=== PATIENT | male | born 1955 | race Caucasian/White ===

== ENCOUNTER 2019-04-14 06:46 | Inpatient (IN) ==
[2019-04-14 07:02] LABS: BILIRUBIN URINE NEGATIVE (NEGATIVE); BLOOD URINE TRACE (NEGATIVE); COLOR YELLOW; GLUCOSE URINE NEGATIVE (NEGATIVE); KETONE URINE NEGATIVE (NEGATIVE); LEUKOCYTES URINE NEGATIVE (NEGATIVE); NITRITE URINE NEGATIVE (NEGATIVE); PH URINE 5.5; PROTEIN URINE 100 mg/dL (NEGATIVE); SP GRAVITY URINE 1.026; TURBIDITY URINE HAZY (CLEAR); URINE SOURCE CLEAN CATCH; UROBILINOGEN URINE NORMAL (NORMAL)
[2019-04-14 07:11] LABS: UR EPITHELIAL CELLS <10 /HPF (<10); URINE BACTERIA NEGATIVE /HPF; URINE RBC <10 /HPF (<10); URINE WBC <10 /HPF (<10)
[2019-04-14 07:12] LABS: URINE CASTS GRANULAR PRESENT; URINE CRYSTALS NONE SEEN; URINE SMALL ROUND CELLS NONE SEEN; URINE YEAST NONE SEEN
[2019-04-14] MEDS ORDERED: ZOFRAN ODT PO ONE (07:52)
[2019-04-14] MEDS ORDERED: TORADOL IM ONE (07:52)
--- NOTE | 2019-04-14 07:55 | Diag Imaging Result Doc PS360 ---
EXAM: CT RENAL STONE SEARCH 04/14/2019 HISTORY: left flank pain, h/o renal stones TECHNIQUE: This exam was performed using automated exposure control, adjustment of mA or kV according to patient size, and/or use of iterative reconstruction technique. COMMENT: There are platelike opacities in the medial lower lobes bilaterally which have not changed since 07/23/2018 and are likely fibrotic. There is no evidence of acute disease in the visualized portion of the chest. There are multiple calyceal stones on the left as well as at least two stones in the renal pelvis. The largest of these measures over 11 mm in diameter. There is no significant hydronephrosis and the proximal ureter is not distended. There is no evidence of ureterolithiasis. The urinary bladder is not distended. There are number of cysts present in the right kidney one of which is exophytic posteriorly measuring 2.6 cm in diameter. There is no evidence of cholelithiasis. There are number of calcifications present in the liver some of which appear to be in the liver capsule. There are also apparent capsular calcifications in the spleen. The aorta is partially calcified and there is no evidence of aneurysm. There are multiple air-fluid levels in the small bowel. There has been previous colon resection and there is an ileostomy in the right lower quadrant. There is herniation of multiple loops of small bowel some of which contain fecalized contents. The stomach is not distended. There is no evidence of free fluid. There is ankylosis of the sacroiliac joints bilaterally and there is degenerative disc and facet disease in the lumbar spine. Compared to 07/23/2018 the dilatation of the small bowel and air-fluid levels were not present previously. IMPRESSION: Left nephrolithiasis without evidence of obstructive uropathy. Partial small bowel obstruction. This is probably due to stomal hernia. Electronically signed by Arun Burleson 04/14/2019 7:52 AM
[2019-04-14] MEDS ORDERED: NS 1,000 ML IV ONE (08:10)
[2019-04-14 08:13] LABS: AGAP 10; ALB/GLOB RATIO 1.1; ALBUMIN 4.1 g/dL (3.5-5.0); ALKALINE PHOSPHATASE 81 U/L (32-122); BUN 12 mg/dL (8-22); CALCIUM 9.3 mg/dL (8.8-10.2); CHLORIDE 103 mmol/L (98-107); COSMO 270; ESTIMATED GFR > 60; GLUCOSE 128 mg/dL (70-104); GOT 21 U/L (10-34); GPT 24 U/L (10-44); POTASSIUM 4.2 mmol/L (3.5-5.1); SODIUM 134 mmol/L (136-145); TCO2 21 mmol/L (25-35); TOTAL BILIRUBIN 0.99 mg/dL (0.20-1.00); TOTAL PROTEIN 7.7 g/dL (6.3-8.3)
[2019-04-14] MEDS ORDERED: VALIUM IV ONE (08:30)
[2019-04-14 08:32] LABS: BASO# 0.03 X1000 (0.0-0.2); BASO% 0.2 % (0.0-0.8); EOS% 0.8 % (0.0-10.0); HEMATOCRIT 50.8 % (42.0-52.0); HEMOGLOBIN 17.8 g/dL (14.0-18.0); IMM GRAN# 0.03 X1000 (0.0-0.04); IMM GRAN% 0.2 % (0.0-0.5); LYMPH# 1.69 X1000 (1.2-3.4); LYMPH% 13.4 % (20.5-51.1); MCH 28.7 PG (27-31); MCV 81.9 FL (81-99); MONO# 0.58 X1000 (0.11-0.59); MONO% 4.6 % (1.7-9.3); MPV 9.2 FL (7.4-10.4); NEUT# 10.15 X1000 (1.4-6.5); NEUT% 80.8 % (42.2-75.2); PLT 281 X1000 (130-400); RDW 13.9 % (11.5-14.5); WBC 12.58 X1000 (4.8-10.8)
--- NOTE | 2019-04-14 08:37 | PROVIDER DOCUMENTATION ---
This chart was entered by Christina Herman Scribe, acting as scribe for Nathan Espinoza DO. HPI-General Adult - General Chief Complaint: Flank Pain Stated Complaint: KIDNEY STONE Time Seen by Provider: 04/14/19 06:50 Source: patient Allergies/Adverse Reactions: Patient Allergies Allergy/AdvReac Type Severity Reaction Status Date / Time No Known Allergies Allergy Verified 12/09/18 08:16 Home Medications: Home Medication List Medication Instructions Recorded Confirmed Last Taken Type Oxycodone HCl/Acetaminophen 1 ea PO Q6-8H PRN PRN #20 tab 12/02/18 12/11/18 12/10/18 19:00 Rx [Percocet 5-325 mg Tablet] 1 Hydrocodone/Acetaminophen [Council 1 ea PO Q4H PRN PRN #10 tab 12/11/18 Unknown Rx 7.5-325 Tablet] Tamsulosin [Flomax] 0.4 mg PO DAILY #10 cap 12/11/18 Unknown Rx - History of Present Illness -Gen Adult Nature of Presenting Problems: 64 yowm presents to the ed with c/o left flank pain radiating to LLQ. pt sts onset of pain was 4 days and sts worsened last night but has improved this am to a 02/09 pain. pt sts has hx of kidney stones and this feels similar to past stones. pt sts was seen 6 months prior with same complaint. pt on exam is nontoxic in appearance Location of Pain/Injury: reports: back (left flankl) Pain Radiation: reports: LLQ Quality of Pain: reports: other (pt describes pain as "jabbing") Severity: reports: moderate (02/09) Onset/Duration: reports: 4 days ago Timing: reports: still present, improving, intermittent Context/Activities at Onset: reports: light activity Modifying Factors: improves with: nothing Associated Symptoms: reports: back/neck pain, nausea. denies: chest pain, cough, diarrhea, fever/chills, malaise, shortness of breath, vomiting Similar Symptoms Previously?: Yes (hx of stones) Recently seen or treated by another doctor?: No Review of Systems - Adult - REVIEW OF SYSTEMS - ADULT Constitutional: denies: chills, fever Eyes: reports: no symptoms reported Ears, Nose, Mouth & Throat: reports: no symptoms reported Cardiovascular: denies: chest pain, palpitations Respiratory: denies: shortness of breath, wheezing Gastrointestinal: reports: see HPI, abdominal pain (LLQ), nausea. denies: diarrhea, vomiting Genitourinary: reports: see HPI, flank pain Musculoskeletal: reports: see HPI, back pain (left flank). denies: neck pain Integumentary: reports: no symptoms reported Neurological: reports: no symptoms reported. denies: dizziness/vertigo, headache/migraines Psychiatric: reports: no symptoms reported Endocrine: reports: no symptoms reported Hematologic/Lymphatic: reports: no symptoms reported Allergic/Immunologic: reports: no symptoms reported All Other Systems: Reviewed and Negative Past History - Adult - PAST MEDICAL HISTORY-ADULT Review of Records: reports: Old Records Reviewed, Nursing Assessment Review, Medications Reviewed, Social history reviewed & non-contributory. Major Childhood Illnesses: reports: denies history Cardiovascular: reports: denies history Respiratory: reports: denies history Gastrointestinal: reports: Crohn's Genitourinary: reports: kidney stones Musculoskeletal: reports: denies history Neurological: reports: denies history Endocrine/Immune: reports: denies history Other Conditions: reports: denies history - PRIOR SURGERIES/PROCEDURES Surgical/Procedure History: reports: other (colon removed; colostomy) - IMMUNIZATION STATUS Childhood Immunizations: See Nurse Assessment Flu Vaccine: See Nurse Assessment - FAMILY HISTORY Family History: reviewed, not pertinent - SOCIAL HISTORY Smoking: quit greater than 1 year (2002) Substance Use: denies Alcohol Use Frequency: never Living Situation: family Physical Exam-General - PHYSICAL EXAM-ADULT Initial Vital Signs Reviewed: Yes - CONSTITUTIONAL General Appearance: appears well, alert, no apparent distress, obese - EYES Eyes: PERRL/EOMI, pink conjunctivae - HEAD, EARS, NOSE, MOUTH & THROAT HENMT: moist mucous membranes, normal ENT inspection - NECK Neck: non-tender, full range of motion, supple, normal inspection - RESPIRATORY Respiratory: chest non-tender, lungs clear, normal breath sounds - CARDIOVASCULAR Cardiovascular: normal peripheral pulses, regular rate, rhythm - GASTROINTESTINAL (ABDOMEN) Abdominal Exam: normal bowel sounds, soft, other (ostomy to RLQ). negative: distended, guarding - LYMPHATIC Lymphatic: no adenopathy - MUSCULOSKELETAL Back Exam: normal inspection, other (left flank tenderness to palpation) Extremity: normal range of motion, non-tender, no pedal edema, no calf tenderness, normal capillary refill - SKIN Integumentary: normal color, normal turgor, warm/dry - NEUROLOGIC Neurologic: grossly normal - PSYCHIATRIC Psych/Mental Status: normal mood/affect, normal thought content, normal thought process, oriented x 3 Progress - PLAN OF CARE/RESULTS Progress/Plan/Lab Results: Vital Signs - 8 hr 04/14/19 06:49 Temperature 98.1 F Pulse Rate 71 Respiratory Rate 16 Blood Pressure 164/97 O2 Sat by Pulse Oximetry 94 L Laboratory Results - last 24 hr 04/14/19 06:52 Urine Source CLEAN CATCH Orders Category Date Time Status URINALYSIS W/POSS RFLX CULT [URINALYSIS] Stat Lab 04/14/19 06:52 Ordered Result Diagrams: 04/14/19 07:44 04/14/19 07:44 - REASSESSMENT Reassessment #1 Time Reassessed: 08:03 (dr espinoza at bedside speaking with pt and family about poc ) Status: improving Reassessment #2 Time Reassessed: 08:34 (pt is resting in bed) Status: unchanged - CT/MRI 1 CT Study: Kidneys Impression: See EMR Report (EXAM: CT RENAL STONE SEARCH 04/14/2019 HISTORY: left flank pain, h/o renal stones TECHNIQUE: This exam was performed using automated exposure control, adjustment of mA or kV according to patient size, an d/or use of iterative reconstruction technique. COMMENT: There are platelike opacities in the medial lower lobes bilaterally which have not changed since 07/23/2018 and are likely fibrotic. There is no evidence of acute disease in the visualized portion of the chest. There are multiple calyceal stones on the left as well as at least two stones in the renal pelvis. The largest of these measures over 11 mm in diameter. There is no significant hydronephrosis and the proximal ureter is not distended. There is no evidence of ureterolithiasis. The urinary bladder is not distended. There are number of cysts present in the right kidney one of which is exophytic posteriorly measuring 2.6 cm in diameter. There is no evidence of cholelithiasis. There are number of calcifications present in the liver some of which appear to be in the liver capsule. There are also apparent capsular calcifications in the spleen. The aorta is partially calcified and there is no evidence of aneurysm. There are multiple air-fluid levels in the small bowel. There has been previous colon resection and there is an ileostomy in the right lower quadrant. There is herniation of multiple loops of small bowel some of which contain fecalized contents. The stomach is not distended. There is no evidence of free fluid. There is ankylosis of the sacroiliac joints bilaterally and there is degenerative disc and facet disease in the lumbar spine. Compared to 07/23/2018 the dilatation of the small bowel and air-fluid levels were not present previously. IMPRESSION: Left nephrolithiasis without evidence of obstructive uropathy. Partial small bowel obstruction. This is probably due to stomal hernia. Electronically signed by Arun Burleson 04/14/2019 7:52 AM 04/14/19 0752 Interpreting Physician: Arun Burleson MD Dictated Date/Time: 04/14/19 0744 cc: Nathan Espinoza DO; None,PCP) - CONSULTS/PCP/HOSPITALIST Notification #1 *Consult/PCP/Hospitalist*: dr sánchez villarreal Time Discussed: 08:23 Consult Disposition: other (phone consult) #2 Consult: hospitalist dr valdes Time Discussed: 08:33 Consult Disposition: Admit Departure - Departure Date of Disposition Decision: 04/14/19 Time of Disposition Decision: 08:33 DIAGNOSIS: Nephrolithiasis, Partial small bowel obstruction Disposition: ADMITTED INPATIENT 09 Certified Medical Emergency: Emergent Condition: Stable Additional Freetext Instructions: ED Follow Up Instructions: You have been treated by a care provider in the Emergency Department. These instructions are being provided to you so you can have an understanding of how to care for yourself upon discharge. Upon discharge from the Emergency Department, you are responsible for making arrangements for follow-up care by a physician of your choice. Take all prescribed medications as directed. Return to the Emergency Department immediately for any new or worsening symptoms. You may call the Physician Referral phone number at [phone] to obtain a list of Physicians who are taking new patients. Referrals and Follow-Ups: None,PCP [Primary Care Provider] - - Critical Care Note This patient required my direct & personal management of CC.: Yes Total Time (mins): 36 Critical Care Statement: This patient required my direct personal management to treat or rule out processes, the absence of which, could potentiallly result in sudden, clinically significant life or limb threatening deterioration. Attestation - Physician/ SOUMYA Attestation Patient care was provided by Advanced Practice Provider:: No The physician spent face to face time with patient:: Yes Advanced Practice Provider documentation review:: Supervising physician onsite and consulted in the evaluation and care of this patient. The physician did have a face to face encounter with the patient. This chart was documented by the indicated scribe, (Christina Herman Scribe) and accurately reflects the services I performed and decisions made by , Nathan Espinoza DO, as attested by the provider's signature.
[2019-04-14] MEDS ORDERED: ZOFRAN IV PRN (08:45)
--- NOTE | 2019-04-14 09:36 | Diag Imaging Result Doc PS360 ---
EXAM: CHEST-1 VIEW 04/14/2019 HISTORY: POST NG TUBE PLACEMENT TECHNIQUE: AP portable chest and abdomen for NG tube placement at 0926 COMMENT: There is an NG tube with its tip in the fundus the stomach. IMPRESSION: NG tube in the stomach. Electronically signed by Arun Burleson 04/14/2019 9:34 AM
--- NOTE | 2019-04-14 10:37 | Diag Imaging Result Doc PS360 ---
CHEST-2 VIEWS - 04/14/2019 INDICATION: sob; leukocytosis COMPARISON: None FINDINGS: There is a nasogastric tube in the stomach. Lung volumes are low. No infiltrates or edema. Heart size and pulmonary vascularity is normal. There are ankylosing syndesmophytes throughout the thoracic spine and most of the lumbar spine. There are numerous disc fusions in the lower thoracic spine. No fracture or subluxation. IMPRESSION: No acute disease or complication. Electronically signed by Joseph Yancey 04/14/2019 10:35 AM
--- NOTE | 2019-04-14 10:46 | HISTORY AND PHYSICAL ---
PRIMARY CARE PROVIDER: No-one. UROLOGIST: Dr. Ingram. GENERAL SURGEON BACK IN 2006: Dr. Merrill. CHIEF COMPLAINT: Abdominal pain. HISTORY OF PRESENT ILLNESS: Mr. John Adams is a 64-year-old male with a medical history of Crohn's, who developed gut back in 2006 requiring colon resection with colostomy. His colostomy bag prescription is from Dr. Merrill, who performed the surgery itself. Is now presenting with complaints of left lower quadrant abdominal pain and the stoma site just feeling different. Imaging reveals he has a partial small-bowel obstruction with multiple loops of small bowel herniation. Dr. Novak was consulted by the ER physician. He will get an NG tube. On further questioning the patient, he actually has been having some left lower quadrant that radiates to his back since the last 3 days. It just worsened last night and he had associated nausea with reflux. No vomiting. The stoma feeling tight, just difficulties with sleeping. The pain eased up only when he is lying on his left side and he noticed that he, over the last 24 hours, had a decrease in the amount of stool. He says usually it has always been an usually black. Visualization of the stool itself right now is thin and it is brown. He has larger volume with eating. He felt feverish this morning, so we will admit to the surgical floor. Consult Dr. Novak. Keep him n.p.o. Give him IV fluids. PAST MEDICAL HISTORY: 1. Crohn's with history of gut and colon resection. 2. Arthritis. 3. Kidney stones. 4. Large hiatal hernia. 5. Seasonal allergies. SURGICAL HISTORY: 1. 2006 had colon resection with colostomy. 2. Double-J stents placed and removed. 3. Lithotripsy. 4. Bilateral cataracts. 5. No history of left heart catheterization. 6. Last EGD and colonoscopy was in [address] To. SOCIAL HISTORY: Quit smoking in 2002 but prior to that was a 1 pack per day smoker for 25 years. Denies alcohol or illicit drug use. He is after 27 years of marriage. She 10 years ago. Had 3 stepchildren with her. One of his stepdaughters lives with them. 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 He is a [employer] . 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 FAMILY HISTORY: Sister has laryngeal cancer. Three brothers and 1 nephew have Crohn's. Mother at 34 from stomach cancer. Father at 89 from congestive heart failure and strokes, also had dementia. He had 1 aunt had breast cancer and diabetes. ALLERGIES: No known drug allergies. HOME MEDICATIONS: He actually claims that he does not take medication at home and reviewing external medication history as far as prescriptions, he has not had any recent refills or medication fills. REVIEW OF SYSTEMS: Fourteen point review of systems are complete and all are negative except for those mentioned in the above HPI. PHYSICAL EXAMINATION: VITAL SIGNS: Temperature 98.1 degrees, heart rate 71, respiratory rate 16, blood pressure 164/97, O2 saturation 94% on room air. 5 feet 9 inches tall, 220 pounds. BMI 32.5. GENERAL: Mr. John Adams is a 64-year-old male. He is in no acute distress. He is able to answer questions appropriately. HEENT: Atraumatic, normocephalic. Pupils equal, round, reactive to light. Extraocular movements intact. Mucous membranes are dry. NECK: Trachea midline. CARDIOVASCULAR: S1, S2. Regular rate and rhythm. No rubs, gallops, murmurs. Trace lower extremity edema. +2 dorsalis and radial pulses. Negative for JVD or carotid bruits. PULMONARY: Clear to auscultation. Bilateral breath sounds. No accessory muscle use or work of breathing noted. Tolerating room air next. GASTROINTESTINAL: Abdomen is round, obese, bulging hernia in the upper mid abdomen. Soft. Positive bowel sounds. Tender in the left lower quadrant. Colostomy with thin brown stool in the right lower quadrant. EXTREMITIES: Moves all extremities equally with mildly decreased range of motion. NEUROLOGIC: Awake, alert and oriented. Follows commands. Sensory is intact. SKIN: Warm, dry, intact. LABORATORY DATA: White blood cells 12,000, hemoglobin 17, hematocrit 50, platelet count 281,000. Sodium 134, potassium 4.2, BUN 12, creatinine 1.0, glucose 128, calcium 9.3. Bilirubin 0.99. AST 21, ALT 24, albumin 4.1. Urinalysis 100 protein, trace blood. IMAGIN. Chest x-ray. NG tubes in the stomach. This is poor imaging of the chest. May have to get a chest x-ray to review for any risk of pneumonia. 2. Renal CT. Left nephrolithiasis without evidence of obstruction uropathy. There is a partial small bowel obstruction and stomal hernia. ASSESSMENT AND PLAN: 1. Partial small-bowel obstruction with stomal hernia, nausea. Currently on the NG tube to low intermittent suction. N.p.o., IV fluids for the n.p.o. status. Antiemetics as needed. Dr. Novak consulted but he does have a history with Dr. Merrill, as Dr. Merrill did his colon resection in 2006. 2. Abdominal pain. We will do IV Ofirmiv as needed q.6 hours. 3. History of Crohn's with gut and colon resection in 2006 with a colocolostomy. Currently there is a stomal herniation. 4. Left nephrolithiasis but nonobstructive. Currently getting IV fluids. Dr. Ingram has followed him for this in the past. 5. Large hiatal hernia but denies any gastroesophageal reflux disease with this. 6. Arthritis. Takes nothing at home for this. 7. Seasonal allergies. Occasionally takes something for his allergies. No complaints at this time. 8. Leukocytosis. We will repeat a chest x-ray to better visualize the chest but denies any pulmonary symptoms other than he does get occasional short of breath when he overeats due to the large hiatal hernia. We will draw lactate and blood cultures. The urinalysis is negative for any signs of UTI. May prophylactically go ahead and start him on some Zosyn for day or 2 or may do Levaquin and Flagyl. 9. Stoma. We will consult Wound Care for taking care of the stoma. 10. Deep venous thrombosis prophylaxis. SCDs. Dictated by CHINA Pollard for Eligio Llanes MD Addendum: Patient seen and examined by myself. Agree with CHINA note. It reflects my assessment and plan. Patient is being admitted to hospital for SBO. General surgery has been consulted. Will continue with NG tube and will monitor patient closely. cc: CHINA Pollard MD [facility]
[2019-04-14 11:10] LABS: HEMOGLOBIN A1C 5.5 % (4.8-6.0)
--- NOTE | 2019-04-14 11:52 | EKG Report ---
Test Performed on : 04/14/2019 11:36:19 AM Test Reason : qtc evaluation Blood Pressure : / mmHG Vent. Rate : 082 BPM Atrial Rate : 082 BPM P-R Int : 186 ms QRS Dur : 084 ms QT Int : 360 ms P-R-T Axes : 038 -44 002 degrees QTc Int : 420 ms Normal sinus rhythm. Left axis deviation Cannot rule out Anterior infarct (cited on or before 19-FEB-2015) Abnormal ECG When compared with ECG of 09-DEC-2018 08:21, No significant change was found Confirmed by Tiffany Hannah MD ([id number]) on 04/15/2019 6:24:47 AM
[2019-04-14 12:03] LABS: FREE T4 0.9 ng/dL (0.93-1.70); TSH 2.3 uIUmL (0.27-4.20)
[2019-04-14] MEDS: SODIUM CHLORIDE 0.9% INJ SCH (12:24)
[2019-04-14] MEDS: PROTONIX IV SCH (12:24)
[2019-04-14] MEDS: NS 1,000 ML IV SCH ×2 (12:24→15:03)
[2019-04-14] MEDS: LEVAQUIN 750 MG/D5W 750 MG/150 ML IVPB IV SCH (12:24)
--- NOTE | 2019-04-14 12:45 | GENERAL SURGERY CONSULTATION ---
DATE: 04/14/2019 REQUESTING PHYSICIAN: Dr. Escalera. REASON FOR CONSULTATION: Consult is concerning a parastomal hernia. HISTORY OF PRESENT ILLNESS: A 64-year-old gentleman with a past medical history of Crohn's. Had an emergent operation in 2006 with a colonic resection and colostomy by my former partner, Dr. Liz. He has been followed most recently by my partner, Dr. Merrill. He has had a known parastomal hernia but it has not been causing him any trouble. He came in with abdominal pain. It was noted in the ER that he had a kidney stone. He had a parastomal hernia, potentially causing obstruction. He has had some left lower quadrant pain that radiates to his back for 3 days but no real pain around his ostomy, which is in the right lower quadrant. He did have ostomy output today. He had an NG tube placed. He is already feeling better since his NG tube has been placed. PAST MEDICAL HISTORY: Includes: 1. Crohn's. 2. Osteoarthritis. 3. History of kidney stones. 4. Large hiatal hernia. 5. Seasonal allergies. PAST SURGICAL HISTORY: Includes: 1. Previous colectomy with colostomy. 2. Double-J stents. 3. Lithotripsy. 4. Bilateral cataracts. 5. History of left heart catheterization. 6. History of EGD and colonoscopy. SOCIAL HISTORY: Former smoker. FAMILY HISTORY: Sister with laryngeal cancer, Crohn's, and stomach cancer. ALLERGIES: None. HOME MEDICATIONS: Current MAR reviewed. REVIEW OF SYSTEMS: A full 14 point review of systems and organ systems obtained, negative except those specified in the HPI. PHYSICAL EXAMINATION: Vital Signs: The patient is currently afebrile. His vital signs are stable. General Examination: No acute distress. Alert, interactive, male. Looks stated age. HEENT: Normocephalic, atraumatic. Pupils equal, round, react to light. Mucous membranes moist. Oropharynx benign. Neck: Supple. Trachea midline. Cardiovascular: Regular rate and rhythm. Lungs: Grossly clear. Abdomen: Soft, protuberant. He does have a hernia down his parastomal aspect but the colostomy appears viable. I do not see any erythema. He has no real significant tenderness. Extremities: Moves all extremities. Neurologic: Grossly intact. Skin: No signs of jaundice. Vascular: All extremities perfused. LABORATORY: White blood count is 12, hematocrit 50.8, platelet count 281,000. Remainder of labs reviewed. CT scan independently reviewed and radiology report reviewed, and noted above. ASSESSMENT AND PLAN: A 64-year-old gentleman with kidney stones, abdominal pain, and a partial small bowel obstruction. 1. Partial small bowel obstruction. At this time, continue nasogastric tube decompression. I would like to try to hold off on any surgical intervention unless he does not seem to improve. If he does improve, we will just manage him nonoperatively. If he does not, we will consider revision of this ostomy and repair of the hernia but at this time, we will try to manage him nonoperatively. 2. Kidney stones. We will defer to Dr. Ingram. 3. Abdominal pain, likely related to a combination of the two described above, although most of his pain is on the left side and that is where his kidney stone is. 4. Multiple medical comorbidities to be managed by the hospitalist service. cc: Tee Novak MD
[2019-04-14] MEDS: FLAGYL 500 MG/NS 500 MG/100 ML IVPB IV SCH ×2 (14:58→22:25)
[2019-04-14] MEDS: OFIRMEV 1000 MG/ISOTONIC SOLN 1,000 MG/100 ML BOTTLE IV PRN (15:58)
[2019-04-15] MEDS: OFIRMEV 1000 MG/ISOTONIC SOLN 1,000 MG/100 ML BOTTLE IV PRN ×2 (03:32→18:39)
[2019-04-15] MEDS: NS 1,000 ML IV SCH ×3 (03:33→17:05)
[2019-04-15] MEDS: FLAGYL 500 MG/NS 500 MG/100 ML IVPB IV SCH ×3 (05:04→21:28)
--- NOTE | 2019-04-15 05:49 | GENERAL SURGERY PROGRESS NOTE ---
DATE: 04/15/2019 SUBJECTIVE: Patient says he is feeling good. His ostomy is working. He has got and air in stool in his appliance. OBJECTIVE: Vital Signs: Patient is currently afebrile. His vital signs are stable. General: No acute distress. HEENT: Normocephalic, atraumatic. Pupils are equal, round, reactive to light. Mucous membranes moist. Oropharynx benign. Neck: Supple. Trachea midline. Cardiovascular: Regular rate and rhythm. Lungs: Grossly clear. Abdomen: Soft. No real tenderness. Ostomy viable and functioning. Extremities: Moves all extremities. Neurologic: Grossly intact. Skin: No signs of jaundice. Vascular: All extremities perfused. LABORATORY: None this morning as of yet. ASSESSMENT AND PLAN: A 64-year-old gentleman with a partial small-bowel obstruction secondary to parastomal hernia. Small-bowel obstruction. At this time, seems to be improving. He does have a chronic peristomal hernia in this area. At this point, would hold off on surgical intervention given the fact that he showed improvement. We will clamp his nasogastric tube and give him clear liquids and see how he does. cc: Tee Novak MD
[2019-04-15 06:25] LABS: INR 1.15; PROTIME 14.9 Seconds (11.0-16.0)
[2019-04-15 06:26] LABS: PTT 28.4 Seconds (22.3-41.8)
[2019-04-15 06:29] LABS: BASO# 0.03 X1000 (0.0-0.2); BASO% 0.3 % (0.0-0.8); EOS# 0.27 X1000 (0.0-0.7); HEMATOCRIT 48.8 % (42.0-52.0); HEMOGLOBIN 16.7 g/dL (14.0-18.0); LYMPH# 1.23 X1000 (1.2-3.4); LYMPH% 13.6 % (20.5-51.1); MCH 28.9 PG (27-31); MCHC 34.2 g/dL (33-37); MCV 84.4 FL (81-99); MONO# 0.86 X1000 (0.11-0.59); MONO% 9.5 % (1.7-9.3); MPV 9.1 FL (7.4-10.4); NEUT# 6.67 X1000 (1.4-6.5); NEUT% 73.6 % (42.2-75.2); PLT 223 X1000 (130-400); RBC 5.78 XMIL (4.7-6.1); RDW 14.5 % (11.5-14.5); WBC 9.06 X1000 (4.8-10.8)
[2019-04-15 06:40] LABS: AGAP 9; ALB/GLOB RATIO 1.2; ALBUMIN 3.6 g/dL (3.5-5.0); ALKALINE PHOSPHATASE 63 U/L (32-122); BUN 15 mg/dL (8-22); CALCIUM 8.6 mg/dL (8.8-10.2); CHLORIDE 106 mmol/L (98-107); COSMO 279; CREATININE 0.9 mg/dL (0.7-1.2); ESTIMATED GFR > 60; GLUCOSE 115 mg/dL (70-104); GOT 16 U/L (10-34); GPT 17 U/L (10-44); MAGNESIUM 2.2 mg/dL (1.5-2.7); POTASSIUM 4.1 mmol/L (3.5-5.1); SODIUM 139 mmol/L (136-145); TCO2 24 mmol/L (25-35); TOTAL BILIRUBIN 1.55 mg/dL (0.20-1.00); TOTAL PROTEIN 6.7 g/dL (6.3-8.3)
[2019-04-15] MEDS: SODIUM CHLORIDE 0.9% INJ SCH (09:47)
[2019-04-15] MEDS: LEVAQUIN 750 MG/D5W 750 MG/150 ML IVPB IV SCH (09:47)
[2019-04-15] MEDS: PROTONIX IV SCH (09:47)
--- NOTE | 2019-04-15 11:02 | PROGRESS NOTE ---
DATE: 04/15/2019 SUBJECTIVE: Patient reports passing gas with less abdominal distention. He reports that breakfast with clear liquid diet. He tolerated it well. OBJECTIVE: Vital Signs: Temperature 97.8, heart rate 74, respiratory rate 18, blood pressure 137/80, and O2 saturation 96% on room air. General: This is an obese 64-year-old male lying in bed in no acute distress. Cardiovascular: S1 and S2 heard. No murmurs, gallops, or rubs. Regular rate and rhythm. Respiratory: Clear bilaterally to auscultation. No work of breathing or using accessory muscles. Abdomen: Soft. Protuberant. A little bit distended and tympanic, but nontender to palpation. Bowel sounds present but distant. No organomegaly noted. Extremities: No clubbing, cyanosis, or edema. Peripheral pulses present in both legs. Neurological: Patient alert and oriented x3. Moves all 4 extremities. LABORATORY DATA: Reviewed. ASSESSMENT/PLAN: 1. 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 The patient reports feeling fine. He did not have any nausea with a clear liquid diet that this patient had this morning. Patient is on Levaquin and Flagyl. Leukocytosis is getting better. Dr. Novak from General Surgery has decided to place him on clear liquids, and he is tolerating. We will continue to monitor. 2. History of Crohn's disease with colon resection. Aware. Patient has a stomal herniation. 3. Left nephrolithiasis but non obstruction. We will continue with IV fluids. 4. Osteoarthritis. We will continue with occasional pain medication. 5. Disposition. At this point, we will repeat an x-ray of the abdomen tomorrow. We will go from there. cc: Eligio Llanes MD
--- NOTE | 2019-04-16 05:57 | GENERAL SURGERY PROGRESS NOTE ---
DATE: 04/16/2019 SUBJECTIVE: The patient is doing okay. He did remove his nasogastric tube by accident yesterday, but he has tolerated his clear liquids. He is still having ostomy output. OBJECTIVE: Vital Signs: The patient is currently afebrile. His vital signs are stable. General: No acute distress. HEENT: Normocephalic, atraumatic. Pupils equal, round, and reactive to light. Mucous membranes moist. Oropharynx benign. Neck: Supple. Trachea midline. Cardiovascular: Regular rate and rhythm. Lungs: Grossly clear. Abdomen: Soft, nontender, nondistended. Ostomy viable and functioning. Extremities: Moves all extremities. Neurologic: Grossly intact. Skin: No signs of jaundice. Vascular: All extremities perfused. LABORATORY: Reviewed from yesterday, white blood cell count is normal, hematocrit is normal, platelet count is normal. Electrolytes appear grossly normal except his bilirubin is slightly elevated at 1.55. ASSESSMENT AND PLAN: A 64-year-old gentleman with partial small-bowel obstruction, likely secondary to parastomal hernia. Small-bowel obstruction: At this time, he clinically seems to be improving. We will continue current treatment. We will advance him to a regular diet. If he seems to have any issues, may consider surgical intervention on his parastomal hernia, but it would be high risk, so we will continue to monitor him for now. cc: Tee Novak MD
[2019-04-16] MEDS: FLAGYL 500 MG/NS 500 MG/100 ML IVPB IV SCH ×3 (06:22→21:35)
[2019-04-16 06:29] LABS: BASO# 0.02 X1000 (0.0-0.2); BASO% 0.3 % (0.0-0.8); EOS# 0.36 X1000 (0.0-0.7); EOS% 4.7 % (0.0-10.0); HEMATOCRIT 47.4 % (42.0-52.0); HEMOGLOBIN 15.6 g/dL (14.0-18.0); IMM GRAN# 0.02 X1000 (0.0-0.04); IMM GRAN% 0.3 % (0.0-0.5); LYMPH# 1.82 X1000 (1.2-3.4); LYMPH% 23.6 % (20.5-51.1); MCHC 32.9 g/dL (33-37); MCV 85.1 FL (81-99); MONO# 0.72 X1000 (0.11-0.59); MONO% 9.3 % (1.7-9.3); MPV 9.4 FL (7.4-10.4); NEUT# 4.78 X1000 (1.4-6.5); NEUT% 61.8 % (42.2-75.2); PLT 197 X1000 (130-400); RBC 5.57 XMIL (4.7-6.1); RDW 14.5 % (11.5-14.5); WBC 7.72 X1000 (4.8-10.8)
[2019-04-16] MEDS: NS 1,000 ML IV SCH ×3 (06:31→21:35)
[2019-04-16 06:54] LABS: AGAP 12; BUN 11 mg/dL (8-22); CALCIUM 8.3 mg/dL (8.8-10.2); CHLORIDE 105 mmol/L (98-107); COSMO 276; CREATININE 0.7 mg/dL (0.7-1.2); ESTIMATED GFR > 60; GLUCOSE 85 mg/dL (70-104); POTASSIUM 3.9 mmol/L (3.5-5.1); SODIUM 139 mmol/L (136-145); TCO2 22 mmol/L (25-35)
[2019-04-16] MEDS: PROTONIX IV SCH (08:50)
[2019-04-16] MEDS: LEVAQUIN 750 MG/D5W 750 MG/150 ML IVPB IV SCH ×2 (08:50→10:51)
[2019-04-16] MEDS: SODIUM CHLORIDE 0.9% INJ SCH (08:50)
--- NOTE | 2019-04-16 10:55 | Diag Imaging Result Doc PS360 ---
EXAM: ABDOMEN FLAT/UPRIGHT HISTORY: sbo TECHNIQUE: Flat and upright, three views COMPARISON: None. FINDINGS: No free air beneath the diaphragm. Multiple surgical clips in the abdomen. No organomegaly. There is fusion of the lumbar spine. Small air distended loops of abdomen with air-fluid levels. There are multiple pelvic phleboliths. IMPRESSION: Ileus or only partial obstruction. Electronically signed by Rod Cannon 04/16/2019 10:52 AM
--- NOTE | 2019-04-16 12:39 | PROGRESS NOTE ---
DATE: 04/16/2019 SUBJECTIVE: Patient reports passing gas, and is eating normal breakfast today. No abdominal distention. OBJECTIVE: Vital Signs: Temperature 98.5 degrees, heart rate 64, respiratory rate 16, blood pressure 124/61, and O2 saturation 97% on room air. General: This is an obese 64-year-old male lying in bed in no acute distress. Cardiovascular: S1 and S2 heard. No murmurs, gallops, or rubs. Regular rate and rhythm. Respiratory: Clear bilaterally to auscultation. No work of breathing or using accessory muscles. Abdomen: Soft. Protuberant, and a little bit distended. Tympanic but nontender to palpation. Bowel sounds present but distant. No organomegaly noted. Extremities: No clubbing, cyanosis, or edema. Peripheral pulses present in all legs. Neurological: Patient is alert and oriented times 3. Moves all four extremities. LABORATORY DATA: Reviewed. The x-ray of the abdomen showed ileus versus partial small bowel obstruction. ASSESSMENT AND PLAN: 1. 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 At this point, patient is doing okay. Yesterday, accidentally, he removed the NG tube. He has been evaluated by Dr. Novak, and he changed his diet to regular diet. Our plan is to observe him over the next 24 hours. If he tolerates a regular diet and his x-rays from tomorrow are okay, I think it would be reasonable to let him go. 2. History of Crohn's disease with colon resection. The patient has stomal herniation but everything is stable according to General Surgery. 3. Left nephrolithiasis with known obstruction. We will continue with IV fluids. 4. Osteoarthritis. We will continue with pain medications on a p.r.n. basis. 5. Disposition: As we mentioned before, if he tolerates regular diet today and x-ray shows improvement, I think he can be discharged tomorrow. cc: Eligio Llanes MD
--- NOTE | 2019-04-17 05:49 | GENERAL SURGERY PROGRESS NOTE ---
DATE: 04/17/2019 SUBJECTIVE: The patient seems to be doing okay. He is having ostomy output. He reports no complaints. OBJECTIVE: Vital Signs: The patient is currently afebrile. His vital signs are stable. General: No acute distress. HEENT: Normocephalic, atraumatic. Pupils equal, round, and reactive to light. Mucous membranes moist. Oropharynx benign. Neck: Supple. Trachea midline. Cardiovascular: Regular rate and rhythm. Lungs: Grossly clear. Abdomen: Soft, nontender. Ostomy appears to be functioning and viable. Extremities: Moves all extremities. Neurologic: Grossly intact. Skin: No signs of jaundice. Vascular: All extremities perfused. LABORATORY: Reviewed from yesterday. White blood cell count is normal, hematocrit is normal, platelet count normal. Electrolytes were mostly normal. ASSESSMENT AND PLAN: A 64-year-old gentleman with partial small-bowel obstruction, likely secondary to parastomal hernia. Partial small-bowel obstruction: Clinically, I think he is resolving. He is not having any abdominal pain. I think it is probably safe for him to go home through the course of the day, but would defer to the hospitalist. If he has recurrent symptoms, may need to consider a parastomal repair, but otherwise continue to monitor. cc: Tee Novak MD
[2019-04-17] MEDS: FLAGYL 500 MG/NS 500 MG/100 ML IVPB IV SCH (06:44)
[2019-04-17 06:59] LABS: BASO# 0.03 X1000 (0.0-0.2); BASO% 0.4 % (0.0-0.8); EOS# 0.38 X1000 (0.0-0.7); EOS% 4.9 % (0.0-10.0); HEMATOCRIT 44.8 % (42.0-52.0); HEMOGLOBIN 15.3 g/dL (14.0-18.0); IMM GRAN# 0.02 X1000 (0.0-0.04); IMM GRAN% 0.3 % (0.0-0.5); LYMPH# 2.22 X1000 (1.2-3.4); LYMPH% 28.7 % (20.5-51.1); MCH 28.8 PG (27-31); MCHC 34.2 g/dL (33-37); MCV 84.2 FL (81-99); MONO% 7.8 % (1.7-9.3); MPV 9.2 FL (7.4-10.4); NEUT# 4.49 X1000 (1.4-6.5); NEUT% 57.9 % (42.2-75.2); PLT 206 X1000 (130-400); RBC 5.32 XMIL (4.7-6.1); RDW 14.1 % (11.5-14.5); WBC 7.74 X1000 (4.8-10.8)
[2019-04-17 07:45] LABS: AGAP 10; BUN 10 mg/dL (8-22); CALCIUM 8.4 mg/dL (8.8-10.2); CHLORIDE 106 mmol/L (98-107); COSMO 276; CREATININE 0.8 mg/dL (0.7-1.2); ESTIMATED GFR > 60; GLUCOSE 89 mg/dL (70-104); POTASSIUM 3.8 mmol/L (3.5-5.1); SODIUM 139 mmol/L (136-145); TCO2 23 mmol/L (25-35)
--- NOTE | 2019-04-17 08:40 | Diag Imaging Result Doc PS360 ---
EXAM: ABDOMEN FLAT/UPRIGHT INDICATION: sbo TECHNIQUE: 3 views COMPARISON: 04/16/2019 FINDINGS: There is patchy small bowel gas. Overall, it appears to have improved during the interval. There is very little bowel distention. No free abdominal gas is appreciated. The abdomen is stable, otherwise. IMPRESSION: Small amount of patchy gas in several small bowel that has improved during the interval. Electronically signed by Alex Saab 04/17/2019 8:37 AM
[2019-04-17] MEDS: PROTONIX IV SCH ×2 (10:09→12:20)
[2019-04-17] MEDS: SODIUM CHLORIDE 0.9% INJ SCH (10:10)
[2019-04-17] MEDS: LEVAQUIN 750 MG/D5W 750 MG/150 ML IVPB IV SCH ×2 (10:10→12:19)
[2019-04-17 11:54] VITALS: BP 148/79
[2019-04-17] MEDS: NS 1,000 ML IV SCH (12:19)
--- NOTE | 2019-04-17 19:09 | DISCHARGE SUMMARY ---
ADMISSION DATE: 04/14/2019 DISCHARGE DATE: 04/17/2019 ADMISSION DIAGNOSES: 1. Partial small bowel obstruction with stomal hernia and nausea. 2. Abdominal pain. 3. History of Crohn's and gut, colon resection 2006 along with a colostomy. 4. Nephrolithiasis but nonobstructive. 5. Large hiatal hernia but denies any gastroesophageal reflux disease. 6. Arthritis. 7. Seasonal allergies. 8. Leukocytosis. 9. Stoma. DISCHARGE DIAGNOSES: 1. Partial small-bowel obstruction with stomal hernia. 2. History of Crohn's and colon resection. 3. Left nephrolithiasis no obstruction. 4. Osteoarthritis. CONSULTATIONS: Dr. Novak, general surgeon. SURGERIES AND PROCEDURES: None. HOSPITAL COURSE: Mr. John Adams is a 64-year-old male, who presented with complaints of abdominal pain. He has a medical history of Crohn's which developed in a gut in 2006 that required colon resection and colostomy. He gets his colostomy bag prescriptions from Dr. Merrill who performed the surgery itself now presenting with complaints of left lower quadrant abdominal pain and the stoma site just different. Imaging revealed that he had partial small bowel obstruction with multiple loops of small bowel herniation. Dr. Novak was consulted by the ER physician. An NG tube was placed. He had been complaining of some left lower quadrant abdominal pain that would radiate to his back and that had lasted for least 3 days prior to presentation. He had nausea and reflux the 24 hours prior to coming in and just complained of the stoma feeling tight and not being able to sleep well with it. Only able to lay on the side to get relief of pain. He also noted that he had a decrease in the amount of stool. Dr. Novak saw him and wanted to hold off on any types of intervention to see if he would improve and if he did not, there was going to be consideration of revision of the ostomy and repair of the hernia. Eventually the NG tube was clamped and he was given clear liquids. He had some leukocytosis that was present on admission as well. He was started on Levaquin and Flagyl. There was a repeat x-ray on 04/16 which continued to show an ileus or partial obstruction. Despite the x-ray, he clinically improved and his diet was advanced to a regular diet. Repeat abdominal x-ray showed improvement, that was performed today and so he is going to get to go home. DISCHARGE VITAL SIGNS: Temperature 97.4 degrees, heart rate 59, respiratory rate 18, blood pressure 148/79, O2 saturation 95% on room air. DISCHARGE LABORATORY DATA: White blood cells 7000, hemoglobin 15, hematocrit 44, platelet count 206,000. Sodium 139, potassium 3.8, BUN 10, creatinine 0.8, glucose 89, calcium 8.4. IMAGING: On 04/14/2019, renal CT, left nephrolithiasis without evidence of obstructive uropathy. There is partial small bowel obstruction and a stomal hernia. Chest x-ray, NG tube in the stomach. Another chest x-ray, no acute disease or complication. On 04/16, abdominal x-ray, ileus or partial obstruction. On 04/17, abdominal x-ray, a small amount of patchy gas in the small bowel that improved during the interval. EKG on admission, normal sinus rhythm, rate 82, QTc 420. DISCHARGE MEDICATIONS: None. DISCHARGE DIET: Regular. DISCHARGE PHYSICIAN FOLLOWUP: Dr. Tee Novak. DISCHARGE INSTRUCTIONS: Notify MD for fever of 101 or above, abdominal pain, uncontrolled nausea or vomiting, difficulty having a bowel movement. If condition changes contact physician and/or return to the emergency department. Changes may include, but are not limited to, shortness of breath, increased fatigue, excessive bleeding. Unexplained weight loss or gain, unmanageable pain, signs or symptoms of infection. DISCHARGE DISPOSITION: Home. Dictated by CHINA Pollard for Eligio Llanes MD ddendum: Patient seen and examined by myself. Agree with CHINA note. It reflects my assessment and plan. Patient is being discharged from hospital in stable condition. Will be seen by Dr. Novak if needed. cc: CHINA Pollard MD [facility]
== END 2019-04-17 14:30 | disposition home or self-care (01) | DRG 394 ==
LOC: ED 06:46 → 4N 08:59
PROVIDERS: ATTEND Internal Medicine